=== PATIENT | female | born 1960 | race American Indian/Alaskan Native ===

== ENCOUNTER 2025-02-12 16:26 | Observation (INO) ==
[2025-02-12] MEDS ORDERED: ONDANSETRON 4 MG/2 ML VIAL IV PRN (17:15)
[2025-02-12] MEDS ORDERED: IPRATROPIUM/ALBUTEROL 3 ML AMPUL.NEB NEB PRN (17:15)
[2025-02-12] MEDS ORDERED: ACETAMINOPHEN 325 MG TABLET PO PRN (17:15)
[2025-02-12] MEDS: BACLOFEN 10 MG TABLET PO PRN (18:25)
[2025-02-12] MEDS: LORazepam 2 MG/ML VIAL IV PRN (18:50)
[2025-02-12] MEDS ORDERED: ALBUTEROL SULFATE 60 PUFF INHALER INH PRN (20:42)
[2025-02-12] MEDS ORDERED: Ipratropium-Albuterol [Combivent Respimat] 20-100 INH PRN (20:55)
[2025-02-12] MEDS: SENNOSIDES 1 TABLET PO SCH (21:29)
[2025-02-12] MEDS: FLUTICASONE/SALMETEROL 250/50 INHALER #14 INH SCH (21:29)
[2025-02-12] MEDS: DOCUSATE SODIUM 100 MG CAPSULE PO SCH (21:29)
[2025-02-12] MEDS: 0.9 % SODIUM CHLORIDE 10 ML SYRINGE IV SCH (21:40)
[2025-02-13] MEDS: KETOROLAC 30 MG/ML VIAL IV PRN (04:13)
[2025-02-13 06:37] VITALS: TEMP 97.2; O2SAT 97
[2025-02-13 07:13] LABS: Basophils # (Auto) 0.02 K/mcL (0.00-0.30); Basophils % (Auto) 0.1 % (0.0-2.0); Eosinophils # (Auto) 0 K/mcL (0.00-0.70); Eosinophils % (Auto) 0 % (0.0-7.0); Hematocrit 33.0 % (34.1-44.9); Hemoglobin 11.2 g/dL (11.2-15.7); Lymphocytes # (Auto) 0.74 K/mcL (1.50-4.80); Lymphocytes % (Auto) 5.3 % (15.5-49.0); Mean Corpuscular HGB Conc 33.9 g/dL (31.0-36.0); Monocytes # (Auto) 0.91 K/mcL (0.10-0.90); Monocytes % (Auto) 6.5 % (1.0-12.0); Neutrophils % (Auto) 87.6 % (38.0-78.0); Platelet Count 221 K/mcL (140-440); RBC 3.59 M/mcL (3.59-5.38); WBC 14.1 K/mcL (4.5-11.0)
[2025-02-13 07:33] LABS: Anion Gap 12.0 (8.0-16.0); Blood Urea Nitrogen 28 mg/dL (8-23); Calcium 8.4 mg/dL (8.6-10.4); Carbon Dioxide 22 mmol/L (22-30); Chloride 103 mmol/L (96-108); Glucose 128 mg/dL (70-105); Potassium 3.9 mmol/L (3.3-5.1); Sodium 137 mmol/L (133-145)
[2025-02-13] MEDS: CHLORTHALIDONE 25 MG TABLET PO SCH (08:35)
[2025-02-13] MEDS: LOSARTAN 25 MG TABLET PO SCH (08:35)
[2025-02-13] MEDS: PANTOPRAZOLE 40 MG TABLET PO SCH (08:35)
[2025-02-19] MEDS ORDERED: VITAMIN D3 125 MCG TABLET PO SCH (09:00)
== END 2025-02-13 11:19 | disposition home or self-care (01) ==
LOC: MEDSUR
PROVIDERS: ADMIT Internal Medicine; ATTEND Internal Medicine

== ENCOUNTER 2025-03-07 12:20 | Inpatient (IN) ==
[2025-03-07] MEDS: cefTRIAXone 2 GM in DEXTROSE 5% IN WATER 50 ML IV ONE (13:06)
[2025-03-07] MEDS: 0.9 % SODIUM CHLORIDE 1,000 ML IV ONE ×2 (13:06→14:21)
[2025-03-07 13:36] LABS: ALT/SGPT 8 U/L (<40); AST/SGOT 22 U/L (<32); Albumin 3.5 gm/dL (3.2-5.2); Albumin/Globulin Ratio 1.0 (1.0-2.3); Alkaline Phosphatase 42 U/L (39-117); Anion Gap 13.0 (8.0-16.0); Bilirubin,Total 0.9 mg/dL (0.1-1.0); Blood Urea Nitrogen 18 mg/dL (8-23); Calcium 8.7 mg/dL (8.6-10.4); Carbon Dioxide 22 mmol/L (22-30); Chloride 103 mmol/L (96-108); Globulin 3.6 gm/dL (2.2-3.7); Glucose 134 mg/dL (70-105); Potassium 3.5 mmol/L (3.3-5.1); Sodium 138 mmol/L (133-145)
[2025-03-07 13:42] LABS: Basophils # (Auto) 0.02 K/mcL (0.00-0.30); Basophils % (Auto) 0.1 % (0.0-2.0); Eosinophils # (Auto) 0.02 K/mcL (0.00-0.70); Eosinophils % (Auto) 0.1 % (0.0-7.0); Hematocrit 33.5 % (34.1-44.9); Hemoglobin 10.3 g/dL (11.2-15.7); Lymphocytes # (Auto) 1.10 K/mcL (1.50-4.80); Lymphocytes % (Auto) 6.8 % (15.5-49.0); Mean Corpuscular HGB Conc 30.7 g/dL (31.0-36.0); Monocytes # (Auto) 1.29 K/mcL (0.10-0.90); Monocytes % (Auto) 8.0 % (1.0-12.0); Neutrophils % (Auto) 84.7 % (38.0-78.0); Platelet Count 314 K/mcL (140-440); RBC 3.37 M/mcL (3.59-5.38); WBC 16.2 K/mcL (4.5-11.0)
[2025-03-07] MEDS: KETOROLAC 30 MG/ML VIAL IV ONE (13:42)
[2025-03-07] MEDS ORDERED: SENNOSIDES 1 TABLET PO PRN (16:05)
[2025-03-07] MEDS ORDERED: ONDANSETRON 4 MG/2 ML VIAL IV PRN (16:05)
[2025-03-07] MEDS ORDERED: ALBUTEROL SULFATE 2.5 MG/3 ML NEBULIZER NEB PRN (16:05)
[2025-03-07] MEDS ORDERED: LACTULOSE 20 GM/30 ML ORAL.SOL PO PRN (16:05)
[2025-03-07] MEDS: ACETAMINOPHEN 325 MG TABLET PO PRN (16:11)
[2025-03-07] MEDS: 0.9 % SODIUM CHLORIDE 1,000 ML IV SCH (16:11)
[2025-03-07] MEDS: 0.9 % SODIUM CHLORIDE 250 ML IV SCH (16:12)
[2025-03-07 16:54] LABS: ALT/SGPT 8 U/L (<40); AST/SGOT 19 U/L (<32); Albumin 3.2 gm/dL (3.2-5.2); Albumin/Globulin Ratio 1.0 (1.0-2.3); Alkaline Phosphatase 39 U/L (39-117); Anion Gap 9.0 (8.0-16.0); Bilirubin,Direct 0.3 mg/dL (<0.3); Bilirubin,Total 0.6 mg/dL (0.1-1.0); Blood Urea Nitrogen 18 mg/dL (8-23); Calcium 8.0 mg/dL (8.6-10.4); Carbon Dioxide 25 mmol/L (22-30); Chloride 107 mmol/L (96-108); Globulin 3.3 gm/dL (2.2-3.7); Glucose 104 mg/dL (70-105); Phosphorous 3.4 mg/dL (2.5-4.5); Potassium 3.1 mmol/L (3.3-5.1); Sodium 141 mmol/L (133-145); Triglycerides 125 mg/dL (<150); Uric Acid 5.3 mg/dL (2.5-8.0)
[2025-03-07] MEDS: NOREPINEPHRINE 250 ML IV PRN (17:05)
[2025-03-07] MEDS: HYDROmorphone 0.5 MG/0.5 ML SYRINGE IV PRN (18:27)
[2025-03-07 18:48] LABS: Barbiturate Screen,Urine None detected; Benzodiazepines Screen,Urine None detected; Fentanyl, Urine Screen None Detected; Opiate Screen,Urine Suspect Positive; Oxycodone, Urine Screen Suspect Positive; Phencyclidine Screen,Urine None detected
[2025-03-07] MEDS ORDERED: ACETAMINOPHEN (PP) 325MG TABLET (#50) PO SCH (19:00)
[2025-03-07] MEDS ORDERED: Ipratropium-Albuterol [Combivent Respimat] 20-100 mcg Inhaler PO PRN (19:43)
[2025-03-07] MEDS: POTASSIUM CHLORIDE 20 MEQ TABLET PO ONE ×2 (20:31→21:01)
[2025-03-07] MEDS: BACLOFEN 10 MG TABLET PO PRN (20:32)
[2025-03-07] MEDS: PREGABALIN 100 MG CAPSULE PO SCH (20:32)
[2025-03-07] MEDS: PANTOPRAZOLE 40 MG TABLET PO SCH (20:32)
[2025-03-07] MEDS: HEPARIN 5,000 UNIT/ML VIAL SQ SCH (20:32)
[2025-03-07] MEDS: FLUTICASONE/SALMETEROL 250/50 INHALER #14 INH SCH (20:32)
[2025-03-07] MEDS: 0.9 % SODIUM CHLORIDE 10 ML SYRINGE IV SCH (22:13)
[2025-03-08 05:36] LABS: Basophils # (Auto) 0.03 K/mcL (0.00-0.30); Basophils % (Auto) 0.2 % (0.0-2.0); Eosinophils # (Auto) 0.13 K/mcL (0.00-0.70); Eosinophils % (Auto) 1.1 % (0.0-7.0); Hematocrit 30.1 % (34.1-44.9); Hemoglobin 9.2 g/dL (11.2-15.7); Lymphocytes # (Auto) 1.38 K/mcL (1.50-4.80); Lymphocytes % (Auto) 11.3 % (15.5-49.0); Mean Corpuscular HGB Conc 30.6 g/dL (31.0-36.0); Monocytes # (Auto) 1.23 K/mcL (0.10-0.90); Monocytes % (Auto) 10.0 % (1.0-12.0); Neutrophils % (Auto) 77.0 % (38.0-78.0); Platelet Count 288 K/mcL (140-440); RBC 3.03 M/mcL (3.59-5.38); WBC 12.2 K/mcL (4.5-11.0)
[2025-03-08 05:53] LABS: ALT/SGPT 7 U/L (<40); AST/SGOT 19 U/L (<32); Albumin 2.9 gm/dL (3.2-5.2); Albumin/Globulin Ratio 0.9 (1.0-2.3); Alkaline Phosphatase 46 U/L (39-117); Anion Gap 8.0 (8.0-16.0); Bilirubin,Direct 0.2 mg/dL (<0.3); Bilirubin,Total 0.3 mg/dL (0.1-1.0); Blood Urea Nitrogen 15 mg/dL (8-23); Calcium 7.7 mg/dL (8.6-10.4); Carbon Dioxide 22 mmol/L (22-30); Chloride 108 mmol/L (96-108); Globulin 3.1 gm/dL (2.2-3.7); Glucose 104 mg/dL (70-105); Phosphorous 2.3 mg/dL (2.5-4.5); Potassium 3.4 mmol/L (3.3-5.1); Sodium 138 mmol/L (133-145); Triglycerides 114 mg/dL (<150); Uric Acid 5.0 mg/dL (2.5-8.0)
[2025-03-08] MEDS: NEUTRA PHOS 1 PACKET PO SCH (08:30)
[2025-03-08] MEDS: cefTRIAXone 2 GM in DEXTROSE 5% IN WATER 50 ML IV SCH (10:19)
[2025-03-08] MEDS: BUTALB/ACETAMINOPHEN/CAFFEINE 1 TABLET PO PRN (19:26)
[2025-03-08] MEDS: METHOCARBAMOL 750 MG TABLET PO SCH (20:24)
[2025-03-08] MEDS: KETOROLAC 15 MG/ML VIAL IV PRN (20:33)
[2025-03-09 05:39] LABS: Basophils # (Auto) 0.02 K/mcL (0.00-0.30); Basophils % (Auto) 0.3 % (0.0-2.0); Eosinophils # (Auto) 0.20 K/mcL (0.00-0.70); Eosinophils % (Auto) 2.8 % (0.0-7.0); Hematocrit 29.3 % (34.1-44.9); Hemoglobin 9.4 g/dL (11.2-15.7); Lymphocytes # (Auto) 1.39 K/mcL (1.50-4.80); Lymphocytes % (Auto) 19.4 % (15.5-49.0); Mean Corpuscular HGB Conc 32.1 g/dL (31.0-36.0); Monocytes # (Auto) 0.72 K/mcL (0.10-0.90); Monocytes % (Auto) 10.1 % (1.0-12.0); Neutrophils % (Auto) 66.8 % (38.0-78.0); Platelet Count 303 K/mcL (140-440); RBC 3.11 M/mcL (3.59-5.38); WBC 7.2 K/mcL (4.5-11.0)
[2025-03-09 06:00] LABS: ALT/SGPT 19 U/L (<40); AST/SGOT 31 U/L (<32); Albumin 3.0 gm/dL (3.2-5.2); Albumin/Globulin Ratio 0.9 (1.0-2.3); Alkaline Phosphatase 42 U/L (39-117); Anion Gap 9.0 (8.0-16.0); Bilirubin,Direct < 0.2 mg/dL (0-0.3); Bilirubin,Total 0.2 mg/dL (0.1-1.0); Blood Urea Nitrogen 12 mg/dL (8-23); Calcium 8.3 mg/dL (8.6-10.4); Carbon Dioxide 25 mmol/L (22-30); Chloride 108 mmol/L (96-108); Globulin 3.3 gm/dL (2.2-3.7); Glucose 118 mg/dL (70-105); Phosphorous 3.3 mg/dL (2.5-4.5); Potassium 3.4 mmol/L (3.3-5.1); Sodium 142 mmol/L (133-145); Triglycerides 134 mg/dL (<150); Uric Acid 4.9 mg/dL (2.5-8.0)
[2025-03-09] MEDS: CIPROFLOXACIN 500 MG TABLET PO SCH (08:11)
[2025-03-09 10:32] VITALS: TEMP 97.4; O2SAT 99
== END 2025-03-09 11:00 | disposition home or self-care (01) | DRG 872 ==
LOC: ED 12:20 → ICU 16:00
PROVIDERS: ADMIT Internal Medicine; ATTEND Internal Medicine